=== PATIENT | male | born 1935 | race Caucasian/White ===

== ENCOUNTER → 2017-05-25 | Outpatient (CLI) | payer MEDICARE, OTHER ==
[~2017-05-25] MED LIST: ACET650S21 PO; ALLO300T PO; ATOR20TA9 PO; CHOL100012 PO; CITA20TA5 PO; FISH1CAP PO; GLUC1CAP18 PO; HYDR25TA6 PO; METF500T4 PO; MULT1TAB60 PO; NAPR220T77 PO; SAW450CA7 PO
[2017-05-25 14:00] LABS: BASOPHILS % (AUTO) 0 % (0-1); EOSINOPHILS # (AUTO) 0.05 x10^3/uL (0-0.4); EOSINOPHILS % (AUTO) 1 % (1-7); LYMPHOCYTES # (AUTO) 1.15 x10^3/uL (1-3.4); LYMPHOCYTES % (AUTO) 23 % (22-44); MD NO; MEAN CORPUSCULAR HEMOGLOBIN 32.8 pg (27.5-34.5); MEAN CORPUSCULAR HGB CONC 34.4 g/dL (33.2-36.2); MEAN CORPUSCULAR VOLUME 95.6 fL (81-97); MEAN PLATELET VOLUME 7.9 fL (7.4-10.4); MONOCYTES # (AUTO) 0.22 x10^3/uL (0.2-0.8); MONOCYTES % (AUTO) 4 % (2-9); NEUTROPHILS # (AUTO) 3.62 x10^3/uL (1.8-6.8); NEUTROPHILS % (AUTO) 72 % (42-75); PLATELET COUNT 145 x10^3/uL (130-400); RED BLOOD COUNT 4.81 x10^6/uL (4.38-5.82); RED CELL DISTRIBUTION WIDTH 13.4 % (9.4-14.8)
[2017-05-25 14:09] LABS: MICROSCOPIC AUTO
[2017-05-25 14:12] LABS: CULTURE INDICATED? YES
[2017-05-25 14:12] LABS: ALBUMIN 3.6 g/dL (3.4-5.0); ANION GAP 5 mmol/L (5-15); CALCIUM 8.5 mg/dL (8.5-10.1); CHLORIDE 104 mmol/L (98-107)
[2017-05-25 14:15] LABS: CREATININE 1.15 mg/dL (0.7-1.3)
[2017-05-25 14:16] LABS: ALANINE AMINOTRANSFERASE 20 U/L (12-78); ALKALINE PHOSPHATASE 55 U/L (45-117); BILIRUBIN,TOTAL 0.8 mg/dL (0.2-1.0); TOTAL PROTEIN 7.2 g/dL (6.4-8.2)
== END | disposition home or self-care (01) ==
LOC: STAR 13:11
PROVIDERS: ATTEND Orthopaedic Surgery
DX: M17.11 Unilateral primary osteoarthritis, right knee (principal); R79.89 Other specified abnormal findings of blood chemistry
CPT/HCPCS: 36415; 80053; 81001; 85025; 87081; 87086; 87147; 93005

== ENCOUNTER 2017-12-20 02:41 | Inpatient (IN) | payer MEDICARE, OTHER ==
[~2017-12-20] VITALS: Ht 177.8 cm; Wt 94.0 kg
[~2017-12-20 02:41] MED LIST changes: -CITA20TA5 PO; +CITA20TA6 PO; +METF500T17 PO; -METF500T4 PO; +OXYC5CAP2 PO
[2017-12-20 03:26] LABS: BASOPHILS # (AUTO) 0.03 x10^3/uL (0-0.1); BASOPHILS % (AUTO) 0 % (0-1); EOSINOPHILS # (AUTO) 0.07 x10^3/uL (0-0.4); EOSINOPHILS % (AUTO) 1 % (1-7); LYMPHOCYTES # (AUTO) 1.78 x10^3/uL (1-3.4); LYMPHOCYTES % (AUTO) 29 % (22-44); MD NO; MEAN CORPUSCULAR HGB CONC 35.1 g/dL (33.2-36.2); MEAN CORPUSCULAR VOLUME 94.2 fL (81-97); MEAN PLATELET VOLUME 7.7 fL (7.4-10.4); MONOCYTES # (AUTO) 0.41 x10^3/uL (0.2-0.8); MONOCYTES % (AUTO) 7 % (2-9); NEUTROPHILS # (AUTO) 3.77 x10^3/uL (1.8-6.8); NEUTROPHILS % (AUTO) 62 % (42-75); PLATELET COUNT 173 x10^3/uL (130-400); RED BLOOD COUNT 4.72 x10^6/uL (4.38-5.82); RED CELL DISTRIBUTION WIDTH 13.4 % (9.4-14.8)
[2017-12-20 03:37] LABS: ALBUMIN 3.9 g/dL (3.4-5.0); ANION GAP 8 mmol/L (5-15); CALCIUM 9.4 mg/dL (8.5-10.1); CHLORIDE 102 mmol/L (98-107); CREATININE 1.17 mg/dL (0.7-1.3)
[2017-12-20 03:39] LABS: MICROSCOPIC AUTO
[2017-12-20 03:57] LABS: CULTURE INDICATED? NO
[2017-12-20 04:49] LABS: INTERNATIONAL NORMALIZED RATIO 0.97 (0.93-1.1); PROTHROMBIN TIME 10.1 Seconds (9.6-11.5)
[2017-12-20] MEDS ORDERED: ASPIRIN 81 MG TABLET CHEW PO ONE (05:00)
[2017-12-20 05:25] VITALS: BP 153/91
[2017-12-20] MEDS ORDERED: SODIUM CHLORIDE 0.9% 1,000 ML IV SCH (05:37)
[2017-12-20] MEDS ORDERED: HEPARIN 5,000 UNITS/ML, 1ML SQ SCH (06:00)
[2017-12-20] MEDS ORDERED: DOCUSATE 100 MG CAPSULE PO PRN (06:00)
[2017-12-20] MEDS ORDERED: ACETAMINOPHEN 325 MG TABLET PO PRN (06:00)
[2017-12-20] MEDS ORDERED: ONDANSETRON ODT 4 MG PO PRN (06:00)
[2017-12-20] MEDS ORDERED: POLYETHYLENE GLYCOL 17 GM PACKET PO PRN (06:00)
[2017-12-20] MEDS ORDERED: ONDANSETRON 2MG/ML, 2ML IVPush PRN (06:00)
[2017-12-20] MEDS ORDERED: morphine SULFATE 10 MG/ML, 1ML IVPush PRN (06:00)
[2017-12-20] MEDS ORDERED: LABETALOL 5MG/ML, 20ML IVPush PRN (06:00)
[2017-12-20] MEDS ORDERED: PROMETHAZINE 25 MG/ML, 1ML IM PRN (06:00)
[2017-12-20] MEDS ORDERED: hydrALAzine 20 MG/ML, 1ML IVPush PRN (06:00)
[2017-12-20] MEDS ORDERED: BISACODYL 10 MG SUPP PR PRN (06:00)
[2017-12-20 06:49] LABS: HEMOGLOBIN A1C 5.9 % (4.2-6.3)
[2017-12-20 06:50] LABS: FREE T4 (FREE THYROXINE) 1.52 ng/dL (0.76-1.46); THYROID STIMULATING HORMONE 6.55 mIU/L (0.358-3.740)
[2017-12-20] MEDS: INSULIN LISPRO 100 UNITS/ML, PEN SQ-INSULIN SCH ×4 (07:00→21:20)
[2017-12-20 07:28] VITALS: BP 136/68
[2017-12-20 13:28] VITALS: BP 138/74
[2017-12-20] MEDS: OXYcodone/APAP 5/325MG TABLET PO PRN (18:15)
[2017-12-20 20:18] VITALS: BP 137/67
[2017-12-20] MEDS: ATORVASTATIN 20 MG TABLET PO SCH (21:19)
[2017-12-21 01:04] VITALS: BP 155/76
[2017-12-21] MEDS ORDERED: OMNIPAQUE 350 MG/ML, 100ML BOTTLE ONE (05:00)
[2017-12-21] MEDS: ASPIRIN 81 MG TABLET EC PO SCH (05:51)
[2017-12-21 06:23] LABS: BASOPHILS # (AUTO) 0.01 x10^3/uL (0-0.1); BASOPHILS % (AUTO) 0 % (0-1); EOSINOPHILS # (AUTO) 0.08 x10^3/uL (0-0.4); EOSINOPHILS % (AUTO) 2 % (1-7); LYMPHOCYTES # (AUTO) 0.99 x10^3/uL (1-3.4); LYMPHOCYTES % (AUTO) 21 % (22-44); MD NO; MEAN CORPUSCULAR HEMOGLOBIN 32.6 pg (27.5-34.5); MEAN CORPUSCULAR HGB CONC 34.3 g/dL (33.2-36.2); MEAN PLATELET VOLUME 7.7 fL (7.4-10.4); MONOCYTES # (AUTO) 0.29 x10^3/uL (0.2-0.8); MONOCYTES % (AUTO) 6 % (2-9); NEUTROPHILS # (AUTO) 3.31 x10^3/uL (1.8-6.8); NEUTROPHILS % (AUTO) 71 % (42-75); PLATELET COUNT 134 x10^3/uL (130-400); RED BLOOD COUNT 4.09 x10^6/uL (4.38-5.82); RED CELL DISTRIBUTION WIDTH 13.4 % (9.4-14.8)
[2017-12-21 06:29] LABS: CHLORIDE 107 mmol/L (98-107)
[2017-12-21 06:38] LABS: ALANINE AMINOTRANSFERASE 15 U/L (12-78); ALKALINE PHOSPHATASE 59 U/L (45-117); ANION GAP 7 mmol/L (5-15); BILIRUBIN,TOTAL 0.6 mg/dL (0.2-1.0); CALCIUM 8.2 mg/dL (8.5-10.1); CHOL/HDL RATIO 2.8; CHOLESTEROL, TOTAL 136 mg/dL (140-239); CREATININE 0.84 mg/dL (0.7-1.3); HDL CHOL % 36 % (26-37); HDL CHOLESTEROL (DIRECT) 49 mg/dL (40-60); LDL CHOLESTEROL,CALCULATED 68 mg/dL (54-169); LDL/HDL RATIO 1.4 (0.5-3.0); TOTAL PROTEIN 6.2 g/dL (6.4-8.2); TRIGLYCERIDES 95 mg/dL (50-200); VLDL CHOLESTEROL 19 mg/dL (0-25)
[2017-12-21] MEDS: INSULIN LISPRO 100 UNITS/ML, PEN SQ-INSULIN SCH ×4 (07:00→20:32)
[2017-12-21 07:12] VITALS: BP 143/74
[2017-12-21 12:53] VITALS: BP 134/76
[2017-12-21] MEDS: OXYcodone/APAP 5/325MG TABLET PO PRN (19:23)
[2017-12-21] MEDS: ATORVASTATIN 20 MG TABLET PO SCH (19:47)
[2017-12-21 20:50] VITALS: BP 156/77
[2017-12-22 01:42] VITALS: BP 126/70
[2017-12-22] MEDS: ASPIRIN 81 MG TABLET EC PO SCH (05:38)
[2017-12-22 06:54] VITALS: BP 159/79
[2017-12-22] MEDS: INSULIN LISPRO 100 UNITS/ML, PEN SQ-INSULIN SCH ×3 (07:00→16:00)
[2017-12-22] MEDS ORDERED: TAMSULOSIN 0.4 MG CAP.ER.24H PO SCH (09:00)
[2017-12-22] MEDS ORDERED: FINASTERIDE 5 MG TABLET PO SCH (09:00)
[2017-12-22 14:02] VITALS: BP 152/70
[2017-12-22] MEDS ORDERED: TAMS-11 PO (16:35)
[2017-12-22] MEDS ORDERED: FINA5TAB4 PO (16:35)
== END 2017-12-22 18:47 | disposition home or self-care (01) | DRG 698 ==
LOC: ED 03:34 → EDIP 04:43 → 4EST 05:20
PROVIDERS: ADMIT Internal Medicine; ATTEND Internal Medicine
DX: N28.89 Other specified disorders of kidney and ureter (principal); G93.40 Encephalopathy, unspecified; N40.1 Benign prostatic hyperplasia with lower urinary tract symptoms; N20.0 Calculus of kidney; G31.9 Degenerative disease of nervous system, unspecified; R33.8 Other retention of urine; I10 Essential (primary) hypertension; E78.5 Hyperlipidemia, unspecified; E11.9 Type 2 diabetes mellitus without complications; M19.90 Unspecified osteoarthritis, unspecified site; Z96.659 Presence of unspecified artificial knee joint; R31.0 Gross hematuria; F32.9 Major depressive disorder, single episode, unspecified; M10.9 Gout, unspecified; Z86.718 Personal history of other venous thrombosis and embolism; Z87.442 Personal history of urinary calculi
CPT/HCPCS: 36415; 70450; 70496; 70498; 70551; 74177; 80048; 80053; 80061; 81001; 82040; 82962; 83036; 83735; 84439; 84443; 85025; 85610; 85730; 93005; 93306; 99285; G0378; J1644; Q9967; J1815; J7030

== ENCOUNTER → 2018-01-08 | Outpatient (CLI) | payer MEDICARE, OTHER ==
[~2018-01-08] MED LIST changes: +FINA5TAB4 PO; +OMNIPAQUE 350 MG/ML, 100ML BOTTLE ONE; +TAMS-11 PO
== END | disposition home or self-care (01) ==
LOC: RAD 11:50
PROVIDERS: ATTEND Urology
DX: N28.89 Other specified disorders of kidney and ureter (principal); N28.1 Cyst of kidney, acquired; K80.20 Calculus of gallbladder without cholecystitis without obstruction; K76.89 Other specified diseases of liver; J84.10 Pulmonary fibrosis, unspecified; J98.4 Other disorders of lung; J98.11 Atelectasis; E11.9 Type 2 diabetes mellitus without complications; D49.512 Neoplasm of unspecified behavior of left kidney; Z86.718 Personal history of other venous thrombosis and embolism
CPT/HCPCS: 71046; 74170; Q9967

== ENCOUNTER 2018-01-14 09:43 | Inpatient (IN) | payer MEDICARE, OTHER ==
[~2018-01-14] VITALS: Ht 179.1 cm; Wt 100.4 kg
[~2018-01-14 09:43] MED LIST changes: +BUPIVACAINE 0.25% ONE; +FUROSEMIDE 20 MG/2 ML ONE; -OMNIPAQUE 350 MG/ML, 100ML BOTTLE ONE; +THROMBIN 5,000 UNIT VIAL TP ONE
[2018-01-14 10:23] VITALS: BP 131/73
[2018-01-14] MEDS ORDERED: NEOSTIGMINE 1 MG/ML, 10ML ONE (10:33)
[2018-01-14] MEDS ORDERED: GLYCOPYRROLATE 0.2MG/1ML, 5ML ONE (10:33)
[2018-01-14] MEDS: LACTATED RINGERS 1,000 ML IV SCH ×2 (11:03→18:04)
[2018-01-14] MEDS ORDERED: MANNITOL PMX 20% 0 ML ONE (11:28)
[2018-01-14] MEDS ORDERED: ACETAMINOPHEN 500 MG TABLET PO ONE (11:30)
[2018-01-14] MEDS ORDERED: OxyconTIN ER 10 MG TAB.ER PO ONE (11:30)
[2018-01-14] MEDS ORDERED: SCOPOLAMINE PATCH, 1.5MG PATCH.TD72 TD ONE (11:30)
[2018-01-14] MEDS ORDERED: FUROSEMIDE 20 MG/2 ML ONE (11:31)
[2018-01-14] MEDS ORDERED: FENTANYL PF 250 MCG/5ML ONE (11:33)
[2018-01-14] MEDS ORDERED: MIDAZOLAM 1 MG/ML, 2ML ONE (11:33)
[2018-01-14] MEDS ORDERED: BUPIVACAINE/PF-EPI 0.25% 1:200K INFIL ONE (12:48)
[2018-01-14] MEDS ORDERED: ONDANSETRON ODT 8 MG PO PRN (13:00)
[2018-01-14] MEDS ORDERED: MORPHINE SULFATE 4 MG/ML, 1ML IVPush PRN (13:00)
[2018-01-14] MEDS ORDERED: FENTANYL PF 100 MCG/2ML IV PRN (13:00)
[2018-01-14] MEDS ORDERED: LABETALOL 5MG/ML, 20ML IV PRN (13:00)
[2018-01-14] MEDS ORDERED: MEPERIDINE/PF 25MG/0.5ML IVPush PRN (13:00)
[2018-01-14] MEDS ORDERED: EPHEDRINE 50 MG/ML, 1ML IVPush PRN (13:00)
[2018-01-14] MEDS ORDERED: OXYcodone 5 MG/5 ML ORAL.SOL UDC PO PRN (13:00)
[2018-01-14] MEDS ORDERED: HALOPERIDOL 5 MG/ML IV PRN (13:00)
[2018-01-14] MEDS ORDERED: PROMETHAZINE 12.5 MG SUPP PR PRN (13:00)
[2018-01-14] MEDS ORDERED: LORazepam 2 MG/ML, 1ML IVPush PRN (13:00)
[2018-01-14] MEDS ORDERED: hydrALAzine 20 MG/ML, 1ML IV PRN (13:00)
[2018-01-14] MEDS ORDERED: ALBUTEROL SULFATE 2.5 MG/3 ML NPPB PRN (13:00)
[2018-01-14] MEDS ORDERED: ONDANSETRON 2MG/ML, 2ML IV PRN (13:00)
[2018-01-14] MEDS ORDERED: MIDAZOLAM 1 MG/ML, 2ML IV PRN (13:00)
[2018-01-14] MEDS ORDERED: PROMETHAZINE 25 MG/ML, 1ML IV PRN (13:00)
[2018-01-14] MEDS ORDERED: FENTANYL PF 100 MCG/2ML ONE ×2 (14:34→16:30)
[2018-01-14] MEDS ORDERED: DEXAMETHASONE 4 MG/ML, 1ML ONE ×2 (14:35)
[2018-01-14] MEDS ORDERED: PROPOFOL 10 MG/ML, 20ML ONE (14:35)
[2018-01-14] MEDS ORDERED: ROCURONIUM 10MG/ML,5ML ONE (14:35)
[2018-01-14] MEDS ORDERED: EPINEPHRINE 1 MG/ML, 1ML ONE (15:54)
[2018-01-14] MEDS ORDERED: BUPIVACAINE 0.25% ONE (15:54)
[2018-01-14] MEDS ORDERED: HYDROmorphone 2 MG/ML, 1ML ONE (16:30)
[2018-01-14] MEDS: HYDROmorphone 1 MG/ML, 1ML IV PRN ×3 (16:45→17:08)
[2018-01-14 17:48] VITALS: BP 136/63
[2018-01-14] MEDS: ACETAMINOPHEN 500 MG TABLET PO SCH (18:30)
[2018-01-14] MEDS ORDERED: HYDROmorphone 1 MG/ML, 1ML IV PRN ×2 (19:00)
[2018-01-14] MEDS: ATORVASTATIN 20 MG TABLET PO SCH (19:59)
[2018-01-14] MEDS: D5%-0.45NACL+KCL 20MEQ 1,000 ML IV SCH (19:59)
[2018-01-14 20:30] VITALS: BP 130/70
[2018-01-15 00:07] VITALS: BP 116/79
[2018-01-15] MEDS: OXYcodone IR 5MG TABLET PO PRN ×3 (02:43→19:40)
[2018-01-15] MEDS: ACETAMINOPHEN 500 MG TABLET PO SCH ×3 (02:43→18:42)
[2018-01-15] MEDS: D5%-0.45NACL+KCL 20MEQ 1,000 ML IV SCH ×3 (03:30→19:40)
[2018-01-15 04:07] VITALS: BP 114/60
[2018-01-15] MEDS ORDERED: HYDROmorphone 2 MG/ML, 1ML ONE (05:03)
[2018-01-15] MEDS: ONDANSETRON 2MG/ML, 2ML IV PRN ×2 (05:15→12:04)
[2018-01-15 05:33] LABS: CHLORIDE 105 mmol/L (98-107)
[2018-01-15 05:39] LABS: ANION GAP 9 mmol/L (5-15); CALCIUM 8.2 mg/dL (8.5-10.1); CREATININE 1.63 mg/dL (0.7-1.3)
[2018-01-15 07:56] VITALS: BP 110/62
[2018-01-15] MEDS: metFORMIN 500 MG TABLET PO SCH (08:39)
[2018-01-15] MEDS: HYDROCHLOROTHIAZIDE 25 MG TABLET PO SCH (08:39)
[2018-01-15] MEDS: ALLOPURINOL 300 MG TABLET PO SCH (08:39)
[2018-01-15] MEDS ORDERED: MULTIVITAMIN 1 TABLET PO SCH (09:00)
[2018-01-15 12:39] VITALS: BP 120/52
[2018-01-15 19:25] VITALS: BP 106/56
[2018-01-15] MEDS: ATORVASTATIN 20 MG TABLET PO SCH (19:40)
[2018-01-16 01:24] VITALS: BP 127/67
[2018-01-16] MEDS: ACETAMINOPHEN 500 MG TABLET PO SCH ×3 (02:27→18:26)
[2018-01-16] MEDS: OXYcodone IR 5MG TABLET PO PRN ×2 (02:27→12:16)
[2018-01-16] MEDS: D5%-0.45NACL+KCL 20MEQ 1,000 ML IV SCH ×3 (04:04→20:51)
[2018-01-16 05:01] LABS: ANION GAP 8 mmol/L (5-15); CALCIUM 7.9 mg/dL (8.5-10.1); CHLORIDE 101 mmol/L (98-107)
[2018-01-16 05:04] LABS: CREATININE 1.57 mg/dL (0.7-1.3)
[2018-01-16 07:17] VITALS: BP 121/66
[2018-01-16] MEDS: ALLOPURINOL 300 MG TABLET PO SCH (08:36)
[2018-01-16] MEDS: metFORMIN 500 MG TABLET PO SCH (08:36)
[2018-01-16] MEDS: HYDROCHLOROTHIAZIDE 25 MG TABLET PO SCH (08:37)
[2018-01-16 12:48] VITALS: BP 146/73
[2018-01-16 18:35] VITALS: BP 145/77
[2018-01-16] MEDS: ATORVASTATIN 20 MG TABLET PO SCH (20:51)
[2018-01-17 01:22] VITALS: BP 128/70
[2018-01-17] MEDS: ACETAMINOPHEN 500 MG TABLET PO SCH ×2 (02:19→10:35)
[2018-01-17] MEDS: D5%-0.45NACL+KCL 20MEQ 1,000 ML IV SCH ×2 (04:33→12:30)
[2018-01-17 05:50] LABS: ANION GAP 8 mmol/L (5-15); CALCIUM 8.1 mg/dL (8.5-10.1); CHLORIDE 100 mmol/L (98-107)
[2018-01-17 05:51] LABS: CREATININE 1.44 mg/dL (0.7-1.3)
[2018-01-17 07:34] VITALS: BP 124/60
[2018-01-17] MEDS: ALLOPURINOL 300 MG TABLET PO SCH (08:14)
[2018-01-17] MEDS: metFORMIN 500 MG TABLET PO SCH (08:14)
[2018-01-17] MEDS: HYDROCHLOROTHIAZIDE 25 MG TABLET PO SCH (08:15)
[2018-01-17 13:52] VITALS: BP 127/63
== END 2018-01-17 14:40 | disposition home health service (06) | DRG 660 ==
LOC: OUT 09:43 → 4NOR 17:43 → OUT 17:50 → 4NOR 17:58
PROVIDERS: ADMIT Urology; ATTEND Urology
PROC: 0WBH4ZZ Excision of Retroperitoneum, Percutaneous Endoscopic Approach (ICD-10-PCS; 2018-01-14)
PROC: 8E0W4CZ Robotic Assisted Procedure of Trunk Region, Percutaneous Endoscopic Approach (ICD-10-PCS; 2018-01-14)
PROC: 0TT14ZZ Resection of Left Kidney, Percutaneous Endoscopic Approach (ICD-10-PCS; principal; 2018-01-14 12:00)
DX: N28.89 Other specified disorders of kidney and ureter (principal); K56.7 Ileus, unspecified; R19.00 Intra-abdominal and pelvic swelling, mass and lump, unspecified site; N40.1 Benign prostatic hyperplasia with lower urinary tract symptoms; N32.81 Overactive bladder; N39.41 Urge incontinence; R35.0 Frequency of micturition; Z90.5 Acquired absence of kidney
CPT/HCPCS: 36415; 80048; 82962; 85014; 85018; 86850; 86900; 88307; 88341; 88342; C1729; G0378; J0171; J1100; J1170; J2250; J2405; J2704; J2710; J3010; J3490; C1760; G0461; J1940; J3480; J7120

== ENCOUNTER → 2018-07-14 | Outpatient (CLI) | payer MEDICARE, OTHER ==
[~2018-07-14] MED LIST changes: +ATOR20TA37 PO; -ATOR20TA9 PO; -BUPIVACAINE 0.25% ONE; -FUROSEMIDE 20 MG/2 ML ONE; +OMNIPAQUE 350 MG/ML, 100ML BOTTLE ONE; -THROMBIN 5,000 UNIT VIAL TP ONE
== END | disposition home or self-care (01) ==
LOC: CFH 09:07
PROVIDERS: ATTEND Urology
DX: N40.0 Benign prostatic hyperplasia without lower urinary tract symptoms (principal); K80.20 Calculus of gallbladder without cholecystitis without obstruction; K76.89 Other specified diseases of liver; Z85.528 Personal history of other malignant neoplasm of kidney
CPT/HCPCS: 74177; 82565; Q9967

== ENCOUNTER → 2018-09-02 | Outpatient (CLI) | payer MEDICARE, OTHER ==
[~2018-09-02] MED LIST changes: -OMNIPAQUE 350 MG/ML, 100ML BOTTLE ONE
== END | disposition home or self-care (01) ==
LOC: CFH 12:18
PROVIDERS: ATTEND Urology
DX: C64.9 Malignant neoplasm of unspecified kidney, except renal pelvis (principal)
CPT/HCPCS: 71046

== ENCOUNTER → 2019-03-02 | Outpatient (CLI) | payer MEDICARE, OTHER ==
[2019-03-02 09:35] LABS: ALANINE AMINOTRANSFERASE 16 U/L (12-78); ALBUMIN 3.7 g/dL (3.4-5.0); ANION GAP 3 mmol/L (5-15); CALCIUM 8.9 mg/dL (8.5-10.1); CHLORIDE 109 mmol/L (98-107); CREATININE 1.62 mg/dL (0.7-1.3)
[2019-03-02 09:38] LABS: ALKALINE PHOSPHATASE 64 U/L (45-117); BILIRUBIN,TOTAL 0.6 mg/dL (0.2-1.0); TOTAL PROTEIN 7.2 g/dL (6.4-8.2)
== END | disposition home or self-care (01) ==
LOC: CFH 07:10
PROVIDERS: ATTEND Urology
DX: C64.9 Malignant neoplasm of unspecified kidney, except renal pelvis (principal); K80.20 Calculus of gallbladder without cholecystitis without obstruction; E11.22 Type 2 diabetes mellitus with diabetic chronic kidney disease; N18.9 Chronic kidney disease, unspecified; N40.1 Benign prostatic hyperplasia with lower urinary tract symptoms; Z82.49 Family history of ischemic heart disease and other diseases of the circulatory system; Z86.718 Personal history of other venous thrombosis and embolism
CPT/HCPCS: 36415; 76700; 80053

== ENCOUNTER → 2019-08-31 | Outpatient (CLI) | payer MEDICARE, OTHER | END | disposition home or self-care (01) | LOC: CFH 12:14 | PROVIDERS: ATTEND Urology | DX: C64.9 Malignant neoplasm of unspecified kidney, except renal pelvis (principal); J84.10 Pulmonary fibrosis, unspecified; K76.89 Other specified diseases of liver; K80.20 Calculus of gallbladder without cholecystitis without obstruction; M47.816 Spondylosis without myelopathy or radiculopathy, lumbar region; K40.90 Unilateral inguinal hernia, without obstruction or gangrene, not specified as recurrent; I70.0 Atherosclerosis of aorta; Z90.5 Acquired absence of kidney | CPT/HCPCS: 71046; 74176 ==

== ENCOUNTER 2020-03-30 13:38 | Emergency (ER) | payer MEDICARE, OTHER ==
[~2020-03-30] VITALS: Ht 177.8 cm; Wt 94.0 kg
[~2020-03-30 13:38] MED LIST changes: +MULT-449 PO; -MULT1TAB60 PO
[2020-03-30] MEDS ORDERED: HYDROmorphone 1 MG/ML, 1ML INJ ONE (14:49)
[2020-03-30] MEDS ORDERED: ONDANSETRON 2MG/ML, 2ML ONE (14:50)
[2020-03-30] MEDS ORDERED: HYDROmorphone 2 MG/ML, 1ML IVPush PRN (15:00)
[2020-03-30] MEDS ORDERED: ONDANSETRON 2MG/ML, 2ML IVPush ONE (15:00)
[2020-03-30] MEDS ORDERED: SODIUM CHLORIDE FLUSH 10ML SYR IVF ONE (15:00)
[2020-03-30 15:25] LABS: BASOPHILS % (AUTO) 1 % (0-1); EOSINOPHILS % (AUTO) 1 % (1-7); LYMPHOCYTES % (AUTO) 17 % (22-44); MEAN CORPUSCULAR HEMOGLOBIN 32.2 pg (27.5-34.5); MEAN CORPUSCULAR HGB CONC 34.2 g/dL (33.2-36.2); MEAN PLATELET VOLUME 7.8 fL (7.4-10.4); MONOCYTES % (AUTO) 6 % (2-9); NEUTROPHILS % (AUTO) 75 % (42-75); PLATELET COUNT 148 x10^3/uL (130-400); RED BLOOD COUNT 4.21 x10^6/uL (4.38-5.82); RED CELL DISTRIBUTION WIDTH 13.7 % (9.4-14.8)
[2020-03-30 15:26] LABS: MD NO
[2020-03-30 15:29] LABS: ALANINE AMINOTRANSFERASE 19 U/L (12-78); ALBUMIN 3.7 g/dL (3.4-5.0); ANION GAP 5 mmol/L (5-15); CHLORIDE 106 mmol/L (98-107); CREATININE 1.52 mg/dL (0.7-1.3)
[2020-03-30 15:31] LABS: ALKALINE PHOSPHATASE 72 U/L (45-117); BILIRUBIN,TOTAL 0.9 mg/dL (0.2-1.0); TOTAL PROTEIN 7.3 g/dL (6.4-8.2)
--- NOTE | 2020-03-30 15:40 | NUR ---
THIS IS A 84 YEAR OLD MALE WHO WAS BIB AMBULANCE DUE TOWALKING, TRIPPED AND FELL, HITTING HIS HEAD ON THE CONCRETE. NO LOC, HEMATOMA ON FOREHEAD AND NOSE BLEED. TAKES DAILY ASPIRIN BUT NO OTHER BLOOD THINNERS. PT STATES PAIN IS 8/10. PT HAS A EGG SIZE HEAD BUMP ON LEFT SIDE OF FOREAD ALONG WITH LACERATION AND NOSE BLEEING. C-COLLAR PLACED, MEDICATED PER MAR FOR PAIN.
--- NOTE | 2020-03-30 15:47 | NUR ---
PT RESTING, AWAITING C SCAN, STATES PAIN LEVEL HAS DECREASED
--- NOTE | 2020-03-30 15:58 | NUR ---
PATIENT TO CT
[2020-03-30 16:07] LABS: INTERNATIONAL NORMALIZED RATIO 1.01 (0.93-1.1); PROTHROMBIN TIME 10.7 Seconds (9.6-11.5)
--- NOTE | 2020-03-30 16:12 | NUR ---
PT BACK FROM CT SCAN
--- NOTE | 2020-03-30 16:49 | NUR ---
REMOVED C-COLLAR, GAVE PATIENT SOME WATER AND URINAL. PATIENT IS RESTING COMFORTABLY, PAIN IS DOWN TO A 2-3. NO ADDITIONAL NEEDS VERBALIZED AT THIS TIME. CALL LIGHT WITHIN REACH.
[2020-03-30] MEDS ORDERED: LIDOCAINE-MPF 1%, 2ML ONE (17:52)
[2020-03-30] MEDS ORDERED: LIDOCAINE-MPF 1%, 5ML ONE (17:53)
[2020-03-30] MEDS ORDERED: CEFAZOLIN 1,000 MG IM ONE (18:20)
--- NOTE | 2020-03-30 18:50 | NUR ---
REPORT FROM MORE WILLIS. PT CARE ASSUMED.
[2020-03-30 19:20] VITALS: BP 150/72
[2020-03-30] MEDS ORDERED: CEFAZOLIN PMX 1GM/50ML 50 ML ONE (19:32)
--- NOTE | 2020-03-30 20:00 | NUR ---
ASHKAN, PT CONTACT FOR D/C, CALLED AND NOTIFIED OF PT READINESS FOR DISCHARGE.
== END 2020-03-30 20:29 | disposition home or self-care (01) ==
LOC: ED 14:20
DX: S02.2XXA Fracture of nasal bones, initial encounter for closed fracture (principal); S01.81XA Laceration without foreign body of other part of head, initial encounter; M54.2 Cervicalgia; E11.9 Type 2 diabetes mellitus without complications; Z86.73 Personal history of transient ischemic attack (TIA), and cerebral infarction without residual deficits; W01.0XXA Fall on same level from slipping, tripping and stumbling without subsequent striking against object, initial encounter; Y93.89 Activity, other specified; Y92.488 Other paved roadways as the place of occurrence of the external cause; Y99.8 Other external cause status
CPT/HCPCS: 12011; 36415; 70450; 70486; 72125; 80053; 85025; 85610; 85730; 96372; 96374; 96375; 99285; J0690; J1170; J2405

== ENCOUNTER 2020-04-07 10:50 | Emergency (ER) | payer MEDICARE, OTHER ==
[~2020-04-07] VITALS: Ht 177.8 cm; Wt 98.2 kg
[2020-04-07 10:55] VITALS: BP 124/65
--- NOTE | 2020-04-07 11:19 | NUR ---
SOFTWARE PERFORMANCE ENGINEER: PT TO ROOM FROM SERINA GONZALEZ
--- NOTE | 2020-04-07 11:50 | NUR ---
PT CONCERNED BECAUSE BRUISING INCREASING AT NECK AND FACE AFTER FALLING ONTO FACE LAST WEEK
== END 2020-04-07 12:47 | disposition home or self-care (01) ==
LOC: ED 11:27
DX: S00.12XA Contusion of left eyelid and periocular area, initial encounter (principal); S00.11XA Contusion of right eyelid and periocular area, initial encounter; S00.83XA Contusion of other part of head, initial encounter; S10.93XA Contusion of unspecified part of neck, initial encounter; E11.9 Type 2 diabetes mellitus without complications; Z86.73 Personal history of transient ischemic attack (TIA), and cerebral infarction without residual deficits; W18.30XA Fall on same level, unspecified, initial encounter; Y93.89 Activity, other specified; Y92.098 Other place in other non-institutional residence as the place of occurrence of the external cause; Y99.8 Other external cause status
CPT/HCPCS: 99282

== ENCOUNTER → 2020-08-21 | Outpatient (CLI) | payer MEDICARE, OTHER | END | disposition home or self-care (01) | LOC: CFH 09:21 | PROVIDERS: ATTEND Physician Assistant | DX: C64.9 Malignant neoplasm of unspecified kidney, except renal pelvis (principal); J98.4 Other disorders of lung | CPT/HCPCS: 71046 ==

== ENCOUNTER 2020-10-24 06:05 | Day surgery (SDC) | payer MEDICARE, OTHER ==
[~2020-10-24] VITALS: Ht 177.8 cm; Wt 96.2 kg
[2020-10-24] MEDS ORDERED: ASPI81TA45 PO (06:55)
[2020-10-24] MEDS ORDERED: FISH OIL PO (06:55)
[2020-10-24] MEDS ORDERED: FINA5TAB4 PO (06:55)
[2020-10-24 06:56] VITALS: BP 148/73
[2020-10-24] MEDS ORDERED: SODIUM CHLORIDE 0.9% 1,000 ML IV SCH (07:00)
[2020-10-24 07:46] LABS: INTERNATIONAL NORMALIZED RATIO 1.01 (0.93-1.1); PROTHROMBIN TIME 10.8 Seconds (9.6-11.5)
[2020-10-24] MEDS ORDERED: FLUMAZENIL 0.1 MG/1 ML, 5ML ONE (08:33)
[2020-10-24] MEDS ORDERED: FENTANYL PF 100 MCG/2ML ONE (08:33)
[2020-10-24] MEDS ORDERED: NALOXONE 1 MG/ML, 2ML ONE (08:33)
[2020-10-24] MEDS ORDERED: MIDAZOLAM 1 MG/ML, 5ML ONE (08:33)
== END 2020-10-24 11:05 | disposition home or self-care (01) ==
LOC: OUT 06:05
PROVIDERS: ATTEND Physician Assistant
DX: C64.9 Malignant neoplasm of unspecified kidney, except renal pelvis (principal); N40.1 Benign prostatic hyperplasia with lower urinary tract symptoms; R39.14 Feeling of incomplete bladder emptying; N28.9 Disorder of kidney and ureter, unspecified; E11.9 Type 2 diabetes mellitus without complications; Z79.82 Long term (current) use of aspirin; Z79.84 Long term (current) use of oral hypoglycemic drugs; Z79.899 Other long term (current) drug therapy; Z83.3 Family history of diabetes mellitus
CPT/HCPCS: 36415; 49180; 77012; 85610; 88305; 88333; 99156; 99157; J2250; J3010; J7030; J2310

== ENCOUNTER 2020-12-20 06:44 | Emergency (ER) | payer MEDICARE ==
[~2020-12-20] VITALS: Ht 177.8 cm; Wt 99.9 kg
[~2020-12-20 06:44] MED LIST changes: +ASPI81TA45 PO; +FISH OIL PO
[2020-12-20 08:12] LABS: BASOPHILS % (AUTO) 0 % (0-1); EOSINOPHILS % (AUTO) 1 % (1-7); LYMPHOCYTES % (AUTO) 10 % (22-44); MEAN CORPUSCULAR HEMOGLOBIN 32.5 pg (27.5-34.5); MEAN CORPUSCULAR HGB CONC 34.4 g/dL (33.2-36.2); MEAN PLATELET VOLUME 7.7 fL (7.4-10.4); MONOCYTES % (AUTO) 6 % (2-9); NEUTROPHILS % (AUTO) 82 % (42-75); PLATELET COUNT 128 x10^3/uL (130-400); RED BLOOD COUNT 4.05 x10^6/uL (4.38-5.82); RED CELL DISTRIBUTION WIDTH 13.2 % (9.4-14.8)
[2020-12-20 08:25] LABS: ALANINE AMINOTRANSFERASE 13 U/L (12-78); ALBUMIN 3.3 g/dL (3.4-5.0); ANION GAP 8 mmol/L (5-15); CALCIUM 9.1 mg/dL (8.5-10.1); CHLORIDE 104 mmol/L (98-107); CREATININE 2.89 mg/dL (0.7-1.3)
[2020-12-20 08:27] LABS: ALKALINE PHOSPHATASE 71 U/L (45-117); BILIRUBIN,TOTAL 0.7 mg/dL (0.2-1.0); TOTAL PROTEIN 7.2 g/dL (6.4-8.2)
--- NOTE | 2020-12-20 08:45 | NUR ---
pt presents to ED with c/o right groin pain, onset last night. pt is a urology patient who already has imaging ordered through urology as he had left groin pain at last urology visit. pt refused CT scan, stating he prefers to complete imaging outpatient through urology, pt unsure if he has ulturasound ordered or CT scan ordered, pt educated regarding importance of CT to rule out emergent pathologies. pt continues to refuse. LORNA Bray and JAMIE Patel notified. pt attached to bp and spo2 monitors, call light in reach, urine sent to lab.
[2020-12-20 09:06] LABS: MICROSCOPIC INDICATED
--- NOTE | 2020-12-20 09:54 | NUR ---
pt continues to refuse CT, german notified. GERMAN Bray spoke with pt who now agrees to CT. CT informed to collect pt.
--- NOTE | 2020-12-20 10:02 | NUR ---
pt taken to CT, pt a&o, resps even and unlabored, nadn at transport.
--- NOTE | 2020-12-20 10:57 | NUR ---
CT reviewed by EDPA and ED, pt awaiting uro consult. pt updated with POC. pt a&o, resps even and unlabored, denies pain.
[2020-12-20 10:59] VITALS: BP 146/75
--- NOTE | 2020-12-20 11:53 | NUR ---
pt requesting discharge, denies pain. pt a&o, resps even and unlabored. states he has follow up appointment with with urology specialist and wishes to leave. dc provided by [facility], pt given dc instructions with uro referrral. pt ambulatory to dc desk with steady gait, all questions answered.
== END 2020-12-20 12:00 | disposition home or self-care (01) ==
LOC: ED 08:33
DX: N13.2 Hydronephrosis with renal and ureteral calculous obstruction (principal); E11.9 Type 2 diabetes mellitus without complications
CPT/HCPCS: 36415; 74176; 80053; 81001; 85025; 87086; 99283; 99285